=== PATIENT | female | born 1975 | race Two or more races ===

== ENCOUNTER 2020-08-15 14:09 | Emergency (ER) | payer OTHER ==
[~2020-08-15] VITALS: Ht 167.6 cm; Wt 77.1 kg
[2020-08-15] MEDS ORDERED: PEPCID20 MG PO (23:02)
[2020-08-15] MEDS ORDERED: IBU400 MG PO (23:02)
== END 2020-08-15 22:55 | disposition home or self-care (01) ==
LOC: ER 14:09
DX: N83.292 Other ovarian cyst, left side (principal); N83.291 Other ovarian cyst, right side; K76.89 Other specified diseases of liver; R10.2 Pelvic and perineal pain; Z03.818 Encounter for observation for suspected exposure to other biological agents ruled out

== ENCOUNTER 2022-01-12 12:20 | Emergency (ER) | payer OTHER ==
[~2022-01-12] VITALS: Ht 167.6 cm; Wt 77.1 kg
[~2022-01-12 12:20] MED LIST: IBU400 MG PO; PEPCID20 MG PO
== END 2022-01-12 16:34 | disposition home or self-care (01) ==
LOC: ER 12:20
DX: J40 Bronchitis, not specified as acute or chronic (principal); Z20.822 Contact with and (suspected) exposure to COVID-19